=== PATIENT | male | born 1975 | race Caucasian/White ===

== ENCOUNTER 2024-01-09 16:26 | Emergency (ER) | payer OTHER, SELFPAY ==
--- NOTE | ~2024-01-09 | CT_ITS ---
EXAMINATION: CT ANGIOGRAM HEAD CT ANGIOGRAM NECK CLINICAL INFORMATION: Slurred speech. Left-sided mouth drop. Inability to move left arm. COMPARISON: CT head from 01/09/2024. TECHNIQUE: Initial noncontrast spiral weaver imaging of the head and neck was performed. Comparison is made with noncontrast head CT from earlier today. Test bolus sequences followed by intravenous administration 70 mL of Omnipaque 350. Helical imaging was performed in the axial plane from the aortic arch to the skull vertex. Delayed postcontrast imaging of the head was also performed. The data was processed at the applied technologist's workstation for generation of MIP sequences. Angled MIPs and volume rendered reformatted images were also generated at an offline 3D workstation. Stenoses are assessed in accordance with NASCET criteria unless otherwise indicated. This CT examination was performed using dose optimization techniques as appropriate, variously including the following: *Automated exposure control. *Adjustment of mA and/or kV according to patient size (this includes techniques or standardized protocols for targeted exams where dose is matched to indication/reason for exam; i.e. extremities or head). *Use of iterative reconstruction technique. DLP: 1654 mGy-cm FINDINGS: CT Head: There is no evidence of acute intracranial hemorrhage or edematous territorial infarction. Evans-white matter differentiation is preserved. There is no abnormal attenuation within the brain parenchyma. The ventricles are normal in morphology and size. No evidence for obstructive hydrocephalus. No abnormal mass effect or midline shift. No extra-axial fluid collections. No pathologic intra-axial enhancement or regional oligemia. No acute soft tissue or osseous abnormalities. Mild mucosal thickening of the paranasal sinuses. The mastoid air cells and middle ear cavities are clear. CT Neck: The thyroid gland and remaining cervical soft tissues are within normal limits. Straightening of the normal cervical lordosis. Advanced degenerative disc disease at C4-C5 and C6-C7. Moderate degenerative disc disease at C3-C4 and C5-C6. Associated disc-osteophyte complex formation appears to lead to at least mild spinal canal stenosis from C3-C5. Facet and uncovertebral joint arthropathy leads to osseous encroachment on the neural foramina from C3-C7. CT Upper Chest: Left-sided subclavian central venous catheter in place. The visualized lung apices and upper mediastinum are within normal limits. Neck CTA: Aortic Arch: Normal contour and caliber with mild calcific atherosclerotic disease. Classic 3 vessel branching pattern of the aortic arch. Great Vessel Origins: No significant stenosis of the branch origins. Right Common Carotid Artery: No focal stenosis or occlusion. Cervical Right Internal Carotid Artery: Normal opacification without focal stenosis or occlusion. Left Common Carotid Artery: No focal stenosis or occlusion. Cervical Left Internal Carotid Artery: Mild calcific atherosclerotic disease of the carotid bulb and proximal internal carotid artery without flow-limiting stenosis. Cervical Right Vertebral Artery: Co-dominant. No focal stenosis or occlusion. Cervical Left Vertebral Artery: Co-dominant. No focal stenosis or occlusion. Brain CTA: Intracranial Internal Carotid Arteries: Mild atherosclerotic disease of the intracranial internal carotid arteries without occlusion or flow-limiting stenosis. Right Anterior Cerebral Artery: Normal A1 segment. Normal opacification of the distal RENATO segments. Left Anterior Cerebral Artery: Normal A1 segment. Normal opacification of the distal RENATO segments. Anterior Communicating Artery: Normal. Right Middle Cerebral Artery: Short M1 segment. Intraluminal filling defect leading to subtotal occlusion of the M1-M2 junction. There is maintained arborization of the distal segments. Left Middle Cerebral Artery: Normal M1 segment of the MCA without focal stenosis or occlusion. Normal arborization of the distal segments. Right Vertebral Artery: Normal V4 segment. Normal opacification of the proximal segments of the posterior inferior cerebellar artery. Left Vertebral Artery: Normal V4 segment. Normal opacification of the proximal segments of the posterior inferior cerebellar artery. Basilar Artery: Normal without focal stenosis or occlusion. Normal appearance of the proximal superior cerebellar arteries. Right Posterior Cerebral Artery: Normal P1 segment. Normal opacification of the distal FIELD MECHANIC segments. Left Posterior Cerebral Artery: Normal P1 segment. Normal opacification of the distal FIELD MECHANIC segments. Normal opacification of the superior sagittal, straight, transverse, and sigmoid sinuses. CT/CT angio head neck stroke IMPRESSION: 1. Short M1 segment of the right MCA. There is an intraluminal filling defect leading to subtotal occlusion of the M1-M2 junction of the right MCA. 2. There is no demonstrated acute intracranial hemorrhage or edematous territorial infarction. 3. CTA of the head and neck without additional proximal occlusion or flow-limiting stenosis. 4. Moderate multilevel degenerative spondyloarthropathy of the cervical spine. Most notably, there appears to be at least mild spinal canal stenosis from C3-C5.
--- NOTE | ~2024-01-09 | CT_ITS ---
EXAMINATION: CT HEAD WITHOUT CONTRAST (STROKE PROTOCOL) CLINICAL INFORMATION: Stroke protocol. Slurred speech, left facial droop and left upper... COMPARISON: None available. TECHNIQUE: Contiguous axial imaging was performed from the skull base to vertex without intravenous administration of contrast. This CT examination was performed using dose optimization techniques as appropriate, variously including the following: *Automated exposure control *Adjustment of mA and/or kV according to patient size (this includes techniques or standardized protocols for targeted exams where dose is matched to indication/reason for exam; i.e. extremities or head) *Use of iterative reconstruction technique DLP: 106 mGy-cm FINDINGS: There is no evidence for an extra-axial collection. There is no evidence for intra-or extra-axial hemorrhage. The ventricles and extra-axial CSF spaces are appropriate. Evans-white matter differentiation is normal. No mass, mass effect or infarct is seen. Review of bone windows is normal. Visualized paranasal sinuses mastoid air cells and middle ears are clear. CT/CT head for stroke IMPRESSION: No acute findings. This critical result was discussed with Airam Fountain at 1652 hours on 01/09/2024. It was ascertained that the content and urgency of the report was understood at the time of direct communication.
--- NOTE | 2024-01-09 16:35 | ECG_ITS ---
Test Reason : STROKE Blood Pressure : / mmHG Vent. Rate : 058 BPM Atrial Rate : 058 BPM P-R Int : 196 ms QRS Dur : 088 ms QT Int : 432 ms P-R-T Axes : 053 -41 033 degrees QTc Int : 424 ms Sinus bradycardia with occasional Premature ventricular complexes Left axis deviation Abnormal ECG No previous ECGs available Referred By: Airam Fountain Electronically Signed By:Sal Carranza
--- NOTE | 2024-01-09 16:42 | ED.NEUROSD ---
HPI - Neuro Symptoms/Deficit General Chief Complaint: Stroke Stated Complaint: STROKE ALERT. ?CVA Time Seen by Provider: 01/09/24 16:30 Source: patient and EMS Mode of arrival: EMS Limitations: other History of Present Illness HPI Narrative: Patient comes to the emergency room by EMS. According to the patient's , at 15:50, she heard that her was having a coughing fit and went to check on him. Patient was awake, alert, patient had left-sided mouth droop, slurred speech, unable to move his left arm. EMS was called immediately. Patient's at the last time that the patient was seen at baseline was at 13:30 On arrival, patient presented as above. Patient is answering questions. Patient states that he did not fall, patient has history of DVTs, states he took Eliquis this morning. Patient denies chest pain or shortness of breath. 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 Oriented X3. No acute distress. Eyes: Pupils equal, round and reactive to light. ENT: Pharynx normal. Neck: Normal inspection. Neck supple. No lymph nodes noted. No crepitus CVS: Normal heart rate and rhythm. Pulses normal. Normal S1 and S2 Respiratory: No respiratory distress. Breath sounds normal. No Wheezing. No rales Abdomen: Soft and nontender. No rigidity. No distention. Skin: Skin warm and dry. Normal skin color. Normal skin turgor. Extremities: No lower extremity edema. No Lacerations. No Rash Neuro: Oriented X 3. In has significant slurred speech, left-sided mouth droop, patient unable to move his left arm at all Psych: calm, cooperative Course Course Course Narrative: -patient confirmed that he took Eliquis this morning. Although patient is in the within the window of treatment, patient is not a candidate due to being on blood thinners. Current NIH score is 7. I discussed the patient with Dr. Trinidad from Neurology, at this time patient is getting his head CT done and CTA. If the CTA shows a blood clot, patient will be transferred to [facility]. -at this time, 17:02, patient returned to his room from the CT scan. Patient is awake, alert and oriented x3, GCS 15, patient is able to fully move both upper and lower extremities, lately a symmetric smile on the left but significantly improved, normal speech. -at 17:26, patient has once again recurrent symptoms, left-sided mouth droop, unable to move his left arm at all. Patient is able to move both lower extremities. , current NIH score 5 -I discussed the CTA scan with Dr. Kramer from neuroradiology, patient has an intraluminal filling defect leading to subtotal occlusion of the M1-M2 junction of the right MCA -[facility]'s interventional neurology team has been paged. -I discussed the patient with Dr. Velasquez, at this time it is borderline weather the patient will need a neuro intervention. Pt will be transferred to [facility]. -Patient and his are both agreeable to aggressive treatment if needed -Pt's Clarice phone number [phone] Medical Decision Making Medical Decision Making MDM Narrative: -as mentioned above, patient is not a candidate for tPA, pt confirmed that he took his last dose of eliquis this morning -Dr. Velasquez from [facility] spoke directly with the patient's over the phone. -patient will be transferred from ED to ED -17:54 labs results became available. My interpretation: Hematology no acute abnormality, white blood cell count 6.0, hemoglobin hematocrit stable. Platelets 89. Reviewed patient's report from Rodriguezshanell Vernon in Oncology, plan was to stop the Eliquis and start Lovenox if the platelets were below 50. Chemistry shows mild hyponatremia, sodium 133. Patient's troponin is 150.1. We do not have previous troponins to compare. Patient does not have any chest pain at all or EKG abnormalities. -my interpretation of EKG: Sinus bradycardia, heart rate 58, no ST segment depression or elevation, no T-wave inversion, QTC 424 -18:11: Neuro check: Patient still has left-sided mouth droop, mild dysarthria, patient unable to move his left arm at all. Patient is able to lift up both lower extremities Differential Diagnosis Differential Diagnoses: The differential diagnosis associated with the presentation includes (TIA, CVA, ) Admission/Observation Consideration of admission/observation: Escalation of care including admission/observation considered Consult Healthcare Provider Management of the patient was discussed with: Housing Quality Standard Inspector Lab Data MDM Lab Attestation statement: I reviewed the patient's lab results. 01/09/24 16:42 01/09/24 16:42 Labs: Lab Results 01/09/24 01/09/24 01/09/24 Range/Units 16:39 16:40 16:41 WBC (4.8-10.8) X10*3/uL RBC (4.60-5.80) X10*6/uL Hgb (14.0-18.0) g/dl Hct (42.0-52.0) % MCV (80.0-98.0) fL MCH (27.0-33.0) pg MCHC (31.0-36.0) g/dl RDW (11.0-16.0) % Plt Count (160-400) X10*3/uL MPV (9.4-12.4) fL Immature Gran % (Auto) (0.0-0.4) % Neut % (Auto) (45-73) % Lymph % (Auto) (20-40) % Collier % (Auto) (2-11) % Eos % (Auto) (0-4) % Baso % (Auto) (0-2) % Lymph # (Auto) (1.2-4.9) X10*3/uL Collier # (Auto) (0.1-1.2) X10*3/uL Eos # (Auto) (0.0-0.4) X10*3/uL Baso # (Auto) (0.0-0.2) X10*3/uL Abs Immat Gran (auto) (0.00-0.03) X10*3/uL Absolute Neuts (auto) (2.0-8.3) x10*3/uL Absolute Nucleated RBC (0.0-0.012) X10*3/uL Nucleated RBC % (auto) (0.0-0.2) /100WBC Smear Tech's Comments Hold Purple Top SEE NOTE PT (11.1-13.3) SEC Whole Blood PT 13.5 (11.1-13.5) sec INR (0.9-1.1) Whole Blood INR 1.1 (0.9-1.1) Sodium (135-145) mmol/L Potassium (3.3-5.1) mmol/L Chloride (96-108) mmol/L Carbon Dioxide (22-29) mmol/L Anion Gap (12-20) BUN (9-16) mg/dL Creatinine (0.5-1.4) mg/dL Estim Creat Clear Calc Estimated GFR POC Glucose 207 H (60-115) mg/dL Random Glucose (60-115) mg/dL Calcium (8.4-10.2) mg/dL Magnesium (1.6-2.6) mg/dL Total Bilirubin (0.0-1.0) mg/dL Direct Bilirubin (0.0-0.5) mg/dL AST (5-37) U/L ALT (0-40) U/L Alkaline Phosphatase (39-117) U/L Troponin I High Sens (<3.5-35.0) ng/L Total Protein (6.5-8.0) g/dL Albumin (3.5-5.0) g/dL Urine Color Urine Appearance Urine pH (5.0-9.0) Ur Specific Lockney (1.005-1.025) Urine Protein (Neg-Trace) mg/dL Urine Glucose (UA) (Negative) mg/dL Urine Ketones (Negative) mg/dL Urine Blood (Negative) Urine Nitrite (Negative) Ur Leukocyte Esterase (Negative) Urine RBC (0-2) /HPF Urine WBC (0-5) /HPF Ur Squamous Epith Cells (0-2) /HPF Urine Bacteria (None Seen) Hyaline Casts (0-2) /LPF Urine Opiates Screen (Not Detect) Urine Fentanyl Screen (Not Detect) Ur Barbiturates Screen (Not Detect) Ur Phencyclidine Scrn (Not Detect) Ur Amphetamines Screen (Not Detect) U Benzodiazepines Scrn (Not Detect) Urine Cocaine Screen (Not Detect) U Marijuana (THC) Screen (Not Detect) Ethyl Alcohol mg/dL COVID-19 (MICHELLE) (Negative) COVID-19 Clin Com 01/09/24 01/09/24 Range/Units 16:42 17:41 WBC 6.0 (4.8-10.8) X10*3/uL RBC 4.83 (4.60-5.80) X10*6/uL Hgb 14.6 (14.0-18.0) g/dl Hct 41.7 L (42.0-52.0) % MCV 86.3 (80.0-98.0) fL MCH 30.2 (27.0-33.0) pg MCHC 35.0 (31.0-36.0) g/dl RDW 12.9 (11.0-16.0) % Plt Count 89 L (160-400) X10*3/uL MPV 11.3 (9.4-12.4) fL Immature Gran % (Auto) 0.8 H (0.0-0.4) % Neut % (Auto) 68.3 (45-73) % Lymph % (Auto) 23.6 (20-40) % Collier % (Auto) 5.7 (2-11) % Eos % (Auto) 1.3 (0-4) % Baso % (Auto) 0.3 (0-2) % Lymph # (Auto) 1.4 (1.2-4.9) X10*3/uL Collier # (Auto) 0.3 (0.1-1.2) X10*3/uL Eos # (Auto) 0.1 (0.0-0.4) X10*3/uL Baso # (Auto) 0.0 (0.0-0.2) X10*3/uL Abs Immat Gran (auto) 0.05 H (0.00-0.03) X10*3/uL Absolute Neuts (auto) 4.1 (2.0-8.3) x10*3/uL Absolute Nucleated RBC 0.000 (0.0-0.012) X10*3/uL Nucleated RBC % (auto) 0.0 (0.0-0.2) /100WBC Smear Tech's Comments VERIFIED Hold Purple Top PT 12.7 (11.1-13.3) SEC Whole Blood PT (11.1-13.5) sec INR 1.0 (0.9-1.1) Whole Blood INR (0.9-1.1) Sodium 133 L (135-145) mmol/L Potassium 4.5 (3.3-5.1) mmol/L Chloride 95 L (96-108) mmol/L Carbon Dioxide 27 (22-29) mmol/L Anion Gap 16 (12-20) BUN 27 H (9-16) mg/dL Creatinine 0.86 (0.5-1.4) mg/dL Estim Creat Clear Calc 106.1 Estimated GFR > 60 POC Glucose (60-115) mg/dL Random Glucose 214 H (60-115) mg/dL Calcium 9.6 (8.4-10.2) mg/dL Magnesium 1.7 (1.6-2.6) mg/dL Total Bilirubin 0.2 (0.0-1.0) mg/dL Direct Bilirubin < 0.2 (0.0-0.5) mg/dL AST 18 (5-37) U/L ALT 27 (0-40) U/L Alkaline Phosphatase 131 H (39-117) U/L Troponin I High Sens 150.1 H* (<3.5-35.0) ng/L Total Protein 7.0 (6.5-8.0) g/dL Albumin 3.8 (3.5-5.0) g/dL Urine Color Yellow Urine Appearance Clear Urine pH 6.5 (5.0-9.0) Ur Specific Lockney >= 1.030 H (1.005-1.025) Urine Protein Negative (Neg-Trace) mg/dL Urine Glucose (UA) 500 H (Negative) mg/dL Urine Ketones Negative (Negative) mg/dL Urine Blood Small (1+) H (Negative) Urine Nitrite Negative (Negative) Ur Leukocyte Esterase Negative (Negative) Urine RBC 6-10 H (0-2) /HPF Urine WBC 0-5 (0-5) /HPF Ur Squamous Epith Cells 0-2 (0-2) /HPF Urine Bacteria None Seen (None Seen) Hyaline Casts 0-2 (0-2) /LPF Urine Opiates Screen POSITIVE H (Not Detect) Urine Fentanyl Screen Not Detected (Not Detect) Ur Barbiturates Screen Not Detected (Not Detect) Ur Phencyclidine Scrn Not Detected (Not Detect) Ur Amphetamines Screen Not Detected (Not Detect) U Benzodiazepines Scrn Not Detected (Not Detect) Urine Cocaine Screen Not Detected (Not Detect) U Marijuana (THC) Screen Not Detected (Not Detect) Ethyl Alcohol < 10 mg/dL COVID-19 (MICHELLE) Negative (Negative) COVID-19 Clin Com See Note Independent Interpretation I performed an independent interpretation of an: CT Scan (My interpretation of head CT, no obvious endocrine bleed) Radiology Impression Discussion of test interpretation with radiology: I discussed test interpretation with the radiologist and I have reviewed the radiologist's reading. Radiologist Impression: CT Head: There is no evidence of acute intracranial hemorrhage or edematous territorial infarction. Evans-white matter differentiation is preserved. There is no abnormal attenuation within the brain parenchyma. The ventricles are normal in morphology and size. No evidence for obstructive hydrocephalus. No abnormal mass effect or midline shift. No extra-axial fluid collections. No pathologic intra-axial enhancement or regional oligemia. No acute soft tissue or osseous abnormalities. Mild mucosal thickening of the paranasal sinuses. The mastoid air cells and middle ear cavities are clear. CT Neck: The thyroid gland and remaining cervical soft tissues are within normal limits. Straightening of the normal cervical lordosis. Advanced degenerative disc disease at C4-C5 and C6-C7. Moderate degenerative disc disease at C3-C4 and C5-C6. Associated disc-osteophyte complex formation appears to lead to at least mild spinal canal stenosis from C3-C5. Facet and uncovertebral joint arthropathy leads to osseous encroachment on the neural foramina from C3-C7. CT Upper Chest: Left-sided subclavian central venous catheter in place. The visualized lung apices and upper mediastinum are within normal limits. Neck CTA: Aortic Arch: Normal contour and caliber with mild calcific atherosclerotic disease. Classic 3 vessel branching pattern of the aortic arch. Great Vessel Origins: No significant stenosis of the branch origins. Right Common Carotid Artery: No focal stenosis or occlusion. Cervical Right Internal Carotid Artery: Normal opacification without focal stenosis or occlusion. Left Common Carotid Artery: No focal stenosis or occlusion. Cervical Left Internal Carotid Artery: Mild calcific atherosclerotic disease of the carotid bulb and proximal internal carotid artery without flow-limiting stenosis. Cervical Right Vertebral Artery: Co-dominant. No focal stenosis or occlusion. Cervical Left Vertebral Artery: Co-dominant. No focal stenosis or occlusion. Brain CTA: Intracranial Internal Carotid Arteries: Mild atherosclerotic disease of the intracranial internal carotid arteries without occlusion or flow-limiting stenosis. Right Anterior Cerebral Artery: Normal A1 segment. Normal opacification of the distal RENATO segments. Left Anterior Cerebral Artery: Normal A1 segment. Normal opacification of the distal RENATO segments. Anterior Communicating Artery: Normal. Right Middle Cerebral Artery: Short M1 segment. Intraluminal filling defect leading to subtotal occlusion of the M1-M2 junction. There is maintained arborization of the distal segments. Left Middle Cerebral Artery: Normal M1 segment of the MCA without focal stenosis or occlusion. Normal arborization of the distal segments. Right Vertebral Artery: Normal V4 segment. Normal opacification of the proximal segments of the posterior inferior cerebellar artery. Left Vertebral Artery: Normal V4 segment. Normal opacification of the proximal segments of the posterior inferior cerebellar artery. Basilar Artery: Normal without focal stenosis or occlusion. Normal appearance of the proximal superior cerebellar arteries. Right Posterior Cerebral Artery: Normal P1 segment. Normal opacification of the distal AUTO TRANSMISSION MECHANIC segments. Left Posterior Cerebral Artery: Normal P1 segment. Normal opacification of the distal AUTO TRANSMISSION MECHANIC segments. Normal opacification of the superior sagittal, straight, transverse, and sigmoid sinuses. CT/CT angio head neck stroke IMPRESSION: 1. Short M1 segment of the right MCA. There is an intraluminal filling defect leading to subtotal occlusion of the M1-M2 junction of the right MCA. 2. There is no demonstrated acute intracranial hemorrhage or edematous territorial infarction. 3. CTA of the head and neck without additional proximal occlusion or flow-limiting stenosis. 4. Moderate multilevel degenerative spondyloarthropathy of the cervical spine. Most notably, there appears to be at least mild spinal canal stenosis from C3-C5. Independent Historian Clinical information obtained from an independent historian. History obtained from or confirmed by: Spouse External Record Review External record reviewed: Outpatient record ([facility] hematology/oncology) Chronic Conditions Patient?s care impacted by: Hypertension, Cancer (Stage IV metastatic pancreatic cancer) and Other (Splenic vein thrombosis) NIH Stroke Scale Internal: Initial- Upon Arrival Level of Consciousness: Alert Level of Consciousness Questions: Answers both questions correctly Level of Consciousness Commands: Performs both tasks correctly Best Gaze: Normal Visual: No visual loss Facial Palsy: Partial paralysis Motor Arm (Right): No drift Motor Arm (Left): No movement Motor Leg (Right): No drift Motor Leg (Left): No drift Limb Ataxia: Absent Sensory: Normal Best Language: No aphasia Dysarthia: Mild to moderate dysarthria Extinction and Inattention: No abnormality Score: 7 Critical Care Time Critical Care Time Critical Care Time: Yes Total Critical Care Time: 90 Attestation: I have personally provided critical care time. Time includes review of lab data, radiology results, discussion with consultants, and monitoring for potential decompensation. Intervention performed as documented. Discharge Plan Discharge Clinical Impression: Thrombotic stroke Patient Disposition: [facility] Transfer Details: [facility] ED to ED, Dr. Velasquez
[2024-01-09 16:43] LABS: Glucose, Whole Blood 207 mg/dL (60-115)
[2024-01-09 16:44] VITALS: BP 150/101; PULSE 60; BMI 27.3
[2024-01-09 16:45] LABS: Prothrombin Time Whole Bld POC 13.5 sec (11.1-13.5); ~PT, ~INR - Anti Coag Clinic 1.1 (0.9-1.1)
--- NOTE | 2024-01-09 16:47 | PC.NURSE ---
pt biba d/t stroke alert. ANGELOCarson @ [id number]. per ems, pt's - pt was upstairs when she heard commotion, found pt w/ slurred speech/leaning to the left side/and left sided weakness. denies fall. +thinners. on eloquis d/t hx of blood clot. pt states he does not know where clot was located. pt currently presents w/ left sided facial droop, left sided weakness in lower and upper extremity, slurred/difficulty speaking/continuous gazing to the right side unable to maintain eye contact. unequal strength noted. face unequal/not symmetrical. 20gIV placed in the right AC. labs obtained/sent to lab. pt in CT at this time. plan of care ongoing.
[2024-01-09 16:53] LABS: Basophils Percent Auto 0.3 % (0-2); Eosinophils Absolute Auto 0.1 X10*3/uL (0.0-0.4); Eosinophils Percent Auto 1.3 % (0-4); Hematocrit 41.7 % (42.0-52.0); Hemoglobin 14.6 g/dl (14.0-18.0); Imm Gran Abs Auto 0.05 X10*3/uL (0.00-0.03); Imm Gran Pct Auto 0.8 % (0.0-0.4); Lymphocytes Absolute Auto 1.4 X10*3/uL (1.2-4.9); Lymphocytes Percent Auto 23.6 % (20-40); Mean Corpuscular Hemoglobin 30.2 pg (27.0-33.0); Mean Corpuscular Volume 86.3 fL (80.0-98.0); Mean Platelet Volume 11.3 fL (9.4-12.4); Monocytes Absolute Auto 0.3 X10*3/uL (0.1-1.2); Monocytes Percent Auto 5.7 % (2-11); Neutrophils Absolute Auto 4.1 x10*3/uL (2.0-8.3); Neutrophils Percent Auto 68.3 % (45-73); Red Blood Count 4.83 X10*6/uL (4.60-5.80); Red Cell Distribution Width 12.9 % (11.0-16.0)
[2024-01-09 16:54] LABS: MANUAL DIFF FLAG SCAN; Platelet Count 89 X10*3/uL (160-400)
[2024-01-09 16:55] LABS: Prothrombin Time 12.7 SEC (11.1-13.3)
[2024-01-09 17:01] VITALS: BP 132/84; PULSE 52; RESP 16; TEMP 37.2; O2SAT 95
--- NOTE | 2024-01-09 17:05 | PC.NURSE ---
pt returned from transport at this time. vss and up to date. nsr on the junior project coordinator. left sided facial droop still present. slurred speech still noted. left sided weakness in lower and upper extremities completed subsided at this time. pt passed nursing swallow evaluation w/o difficulty. respirations remain even and unlabored. bedside for support. call ramírez placed within reach.
[2024-01-09 17:07] LABS: IDNOW Serial# 6674DD1D
[2024-01-09 17:08] LABS: COVID-19 Test Negative (Negative)
[2024-01-09 17:09] LABS: Alanine Aminotransferase 27 U/L (0-40); Albumin Level 3.8 g/dL (3.5-5.0); Alkaline Phosphatase 131 U/L (39-117); Anion Gap 16 (12-20); Aspartate Amino Transferase 18 U/L (5-37); Bilirubin Direct < 0.2 mg/dL (0.0-0.5); Bilirubin Total 0.2 mg/dL (0.0-1.0); Blood Urea Nitrogen 27 mg/dL (9-16); Calcium 9.6 mg/dL (8.4-10.2); Carbon Dioxide 27 mmol/L (22-29); Chloride 95 mmol/L (96-108); Creatinine Clr Calc Pharmacy 106.1; Estimated Glomerular Filt Rate > 60; Ethanol < 10 mg/dL; Glucose Random 214 mg/dL (60-115); Magnesium 1.7 mg/dL (1.6-2.6); Potassium 4.5 mmol/L (3.3-5.1); Sodium 133 mmol/L (135-145)
[2024-01-09 17:10] LABS: SLIDE REVIEW VERIFIED
[2024-01-09 17:47] LABS: Appearance Urine Clear; Color Urine Yellow; Glucose Urine UA 500 mg/dL (Negative); Leukocyte Esterase Urine Negative (Negative); Nitrite Urine Negative (Negative); PH 6.5 (5.0-9.0); Specific Gravity - Urine >= 1.030 (1.005-1.025); UMIC TRIGGER UACC YES; Urine Blood Small (1+) (Negative); Urine Ketones Negative (Negative); Urine Protein Negative (Neg-Trace)
[2024-01-09 17:51] VITALS: BP 147/91; PULSE 55; RESP 16; TEMP 37.2; O2SAT 95
[2024-01-09 17:52] LABS: Bacteria Urine None Seen (None Seen); Hyaline Casts Urine 0-2 /LPF (0-2); Squamous Epithelial Cell Urine 0-2 /HPF (0-2); WBC Urine 0-5 /HPF (0-5)
--- NOTE | 2024-01-09 17:54 | PC.NURSE ---
ptand spoke w/ dr. pablo in regards to of plan of care in regards to being transferred to [facility]. pt continues to rest in no apparent distress. bedside. call ramírez placed within reach.
[2024-01-09 18:05] LABS: Amphetamine Screen Urine Not Detected (Not Detect); Barbiturates, Urine Not Detected (Not Detect); Benzodiazepines Screen Urine Not Detected (Not Detect); Cannabinoid Screen Urine Not Detected (Not Detect); Cocaine Screen Urine Not Detected (Not Detect); Fentanyl, urine Not Detected (Not Detect); Opiate Screen Urine POSITIVE (Not Detect); Phencyclidine Screen Urine Not Detected (Not Detect)
--- NOTE | 2024-01-09 18:33 | PC.NURSE ---
report given to TROY Waldron in the laboratory inspector at [facility] as well as salazar at this time. pt getting ready for transport.
[2024-01-09 20:10] LABS: Troponin-I High Sensitivity 150.1 ng/L (<3.5-35.0)
== END 2024-01-09 19:55 | disposition short-term general hospital (02) ==
PROVIDERS: Emergency Provider Emergency Medicine; PCP Nurse Practitioner Adult Health
DX: I63.311 Cerebral infarction due to thrombosis of right middle cerebral artery (principal); R47.1 Dysarthria and anarthria; R29.810 Facial weakness; R29.707 NIHSS score 7; I10 Essential (primary) hypertension; E11.9 Type 2 diabetes mellitus without complications; Z86.718 Personal history of other venous thrombosis and embolism; Z79.01 Long term (current) use of anticoagulants; Z11.52 Encounter for screening for COVID-19
CPT/HCPCS: 70450; 70496; 70498; 80048; 80076; 80307; 81001; 82947; 83735; 84484; 85025; 85610; 87635; 93005; 99285

== ENCOUNTER → 2024-01-09 16:35 | Outpatient (BNV) | payer OTHER, SELFPAY | PROVIDERS: Emergency Provider Emergency Medicine; PCP Nurse Practitioner Adult Health; Visit Provider Internal Medicine Cardiovascular Disease | DX: I49.3 Ventricular premature depolarization (principal) | CPT/HCPCS: 93010 ==